=== PATIENT | male | born 2000 | race Asian ===

== ENCOUNTER 2021-10-25 10:23 | Emergency (ER) | payer BC | END 2021-10-25 13:20 | disposition home or self-care (01) | LOC: JD.ED 10:23 | DX: R00.2 Palpitations (principal); Z72.0 Tobacco use | CPT/HCPCS: 36415; 80053; 84443; 84484; 85025; 93005; 93225; 93226; 99285-25 ==

== ENCOUNTER 2021-11-15 16:05 | Emergency (ER) | payer BC | END 2021-11-15 19:25 | disposition home or self-care (01) | LOC: JD.ED 16:05 | DX: R00.2 Palpitations (principal); Z87.891 Personal history of nicotine dependence | CPT/HCPCS: 36415; 71045; 71045-26; 80053; 83735; 84443; 84484; 85025; 85379; 93005; 93010; 99285; 99285-25 ==

== ENCOUNTER 2022-06-05 12:08 | Emergency (ER) | payer BC ==
[2022-06-05] MEDS ORDERED: LORazepam 1 MG Tab PO ONE (13:44)
== END 2022-06-05 15:55 | disposition home or self-care (01) ==
LOC: JD.ED 12:08
DX: F41.9 Anxiety disorder, unspecified (principal); R07.89 Other chest pain
CPT/HCPCS: 36415; 71046; 80053; 84443; 84484; 85025; 85379; 93005; 99285; A9270; 93010; 99284

== ENCOUNTER 2022-07-26 20:11 | Emergency (ER) | payer BC ==
[2022-07-26 21:52] LABS: CORONAVIRUS COVID-19 NAA NEGATIVE (NEGATIVE)
== END 2022-07-26 22:23 | disposition home or self-care (01) ==
LOC: JD.ED 20:11
DX: B34.9 Viral infection, unspecified (principal); Z79.899 Other long term (current) drug therapy; Z90.49 Acquired absence of other specified parts of digestive tract; Z20.822 Contact with and (suspected) exposure to COVID-19
CPT/HCPCS: 0241U; 87651; 99284

== ENCOUNTER 2022-08-13 21:43 | Emergency (ER) | payer BC ==
[2022-08-13 23:31] LABS: CORONAVIRUS COVID-19 NAA POSITIVE (NEGATIVE)
== END 2022-08-14 00:27 | disposition home or self-care (01) ==
LOC: JD.ED 21:43
DX: U07.1 COVID-19 (principal); Z79.899 Other long term (current) drug therapy; Z86.16 Personal history of COVID-19; Z90.49 Acquired absence of other specified parts of digestive tract
CPT/HCPCS: 0241U; 99284

== ENCOUNTER 2023-04-17 15:56 | Emergency (ER) | payer BC ==
[2023-04-17 17:09] LABS: BASOPHILS ABSOLUTE AUTO 0.03 K/mm3 (0.01-0.08); BASOPHILS PERCENT AUTO 0.3 % (0.1-1.2); EOSINOPHILS ABSOLUTE AUTO 0.31 K/mm3 (0.04-0.54); EOSINOPHILS PERCENT AUTO 3.3 (0.8-7.0); HEMATOCRIT 44.2 % (40.1-51.0); HEMOGLOBIN 15.4 gm/dl (13.7-17.5); IMMATURE GRAN ABSOLUTE AUTO 0.06 K/mm3 (0.00-0.10); IMMATURE GRAN PERCENT AUTO 0.6 % (<=1.0); LYMPHOCYTES ABSOLUTE AUTO 2.02 K/mm3 (1.32-3.57); LYMPHOCYTES PERCENT AUTO 21.4 % (21.8-53.1); MEAN CORPUSCULAR HEMOGLOBIN 30.7 pg (25.7-32.2); MEAN CORPUSCULAR HGB CONC 34.8 g/dl (32.2-35.5); MEAN CORPUSCULAR VOLUME 88.2 fl (79.0-92.2); MEAN PLATELET VOLUME 12.2 fl (9.4-12.3); MONOCYTES PERCENT AUTO 8.5 % (5.3-12.2); NEUTROPHILS ABSOLUTE AUTO 6.21 K/mm3 (1.78-5.38); NEUTROPHILS PERCENT AUTO 65.9 % (34.0-67.9); PLATELET COUNT,PLT 131 K/mm3 (163-337); RED BLOOD CELL COUNT 5.01 M/mm3 (4.63-6.08); WHITE BLOOD CELL COUNT,WBC 9.43 K/mm3 (4.23-9.07)
[2023-04-17] MEDS ORDERED: LORazepam 1 MG Tab PO ONE (17:14)
[2023-04-17 17:36] LABS: A/G RATIO 1.2 (1-2); ALANINE AMINOTRANSFERASE,ALT 61 U/L (16-63); ALBUMIN 3.9 g/dl (3.4-5.0); ALKALINE PHOSPHATASE 61 U/L (46-116); ASPARTATE AMNIOTRANSFERASE,AST 25 U/L (15-37); BILIRUBIN TOTAL 0.5 mg/dL (0.2-1.0); BLOOD UREA NITROGEN,BUN 12 mg/dL (7-18); CALCIUM 9.1 mg/dL (8.5-10.1); CARBON DIOXIDE,CO2 29 mEq/L (21-32); CHLORIDE,CL 104 mEq/L (98-107); ESTIMATED GFR 108 mL/min (>60); GLUCOSE RANDOM 105 mg/dL (70-99); PROTEIN TOTAL,TP 7.3 g/dl (6.4-8.2); SODIUM,NA 141 mEq/L (136-145); TSH 1.362 uIU/mL (0.358-3.74)
== END 2023-04-17 18:05 | disposition home or self-care (01) ==
LOC: JD.ED 15:56
DX: F41.9 Anxiety disorder, unspecified (principal); Z86.16 Personal history of COVID-19; Z87.891 Personal history of nicotine dependence
CPT/HCPCS: 36415; 80053; 84443; 85025; 99283; A9270

== ENCOUNTER 2023-07-03 19:58 | Emergency (ER) | payer BC ==
[2023-07-03] MEDS ORDERED: Sodium Chloride 0.9% 10 ML Syringe FLUSH PRN (20:39)
[2023-07-03 21:06] LABS: BASOPHILS ABSOLUTE AUTO 0.1 K/mm3 (0.0-0.2); BASOPHILS PERCENT AUTO 0.8 % (0.0-1.0); EOSINOPHILS ABSOLUTE AUTO 0.5 K/mm3 (0.0-0.4); EOSINOPHILS PERCENT AUTO 5.5 % (0.0-6.0); HEMATOCRIT 46.2 % (42.0-52.0); HEMOGLOBIN 16.6 gm/dl (14.0-18.0); IMMATURE GRAN ABSOLUTE AUTO 0.06 K/mm3 (0.00-0.05); IMMATURE GRAN PERCENT AUTO 0.7 % (0.0-0.4); LYMPHOCYTES PERCENT AUTO 22.1 % (24.0-44.0); MEAN CORPUSCULAR HEMOGLOBIN 31.5 pg (28.0-32.0); MEAN CORPUSCULAR HGB CONC 35.9 g/dl (32.0-36.0); MEAN CORPUSCULAR VOLUME 87.7 fl (83.0-99.0); MEAN PLATELET VOLUME 12.3 fl (9.4-12.4); MONOCYTES ABSOLUTE AUTO 0.7 K/mm3 (0.0-0.8); MONOCYTES PERCENT AUTO 7.3 % (0.0-8.0); NEUTROPHILS ABSOLUTE AUTO 5.7 K/mm3 (1.8-7.7); NEUTROPHILS PERCENT AUTO 63.6 % (41.0-71.0); PLATELET COUNT,PLT 143 K/mm3 (150-400); RED BLOOD CELL COUNT 5.27 M/mm3 (4.52-5.90); WHITE BLOOD CELL COUNT,WBC 8.88 K/mm3 (3.9-11.3)
[2023-07-03 21:29] LABS: ALBUMIN 3.7 g/dl (3.4-5.0); ANION GAP 12.8 (5-15); BILIRUBIN TOTAL 0.4 mg/dL (0.2-1.0); CALCIUM 9.5 mg/dL (8.5-10.1); EST CRCL DRUG DOSING (CG) 131.29 mL/min; POTASSIUM,K 3.8 mEq/L (3.5-5.1); PROTEIN TOTAL,TP 7.3 g/dl (6.4-8.2)
[2023-07-03] MEDS ORDERED: LORazepam 1 MG Tab PO ONE (21:34)
[2023-07-03] MEDS ORDERED: Atenolol 25 MG Tab PO ONE (21:54)
== END 2023-07-03 22:18 | disposition home or self-care (01) ==
LOC: JD.ED 19:58
DX: I49.1 Atrial premature depolarization (principal); F41.9 Anxiety disorder, unspecified; Z86.16 Personal history of COVID-19
CPT/HCPCS: 36415; 71045; 80053; 84443; 84484; 85025; 85379; 93005; 99285; A9270; 93010; 99283

== ENCOUNTER 2023-07-06 05:00 | Emergency (ER) | payer BC | END 2023-07-06 06:32 | disposition home or self-care (01) | LOC: JD.ED 05:00 | DX: R00.2 Palpitations (principal); R53.83 Other fatigue | CPT/HCPCS: 99283; 99284 ==